=== PATIENT | male | born 1945 | race Caucasian/White ===

== ENCOUNTER 2016-05-25 20:08 | Emergency (ER) | payer MEDICARE, BC ==
[~2016-05-25] VITALS: Ht 175.3 cm; Wt 89.8 kg
[~2016-05-25 20:08] MED LIST: AMLO10TA2 PO; ASPI81TA2 PO; MULT-1168 PO; [UNRECOGNIZED DRUG - REMARK] PO
[2016-05-25] MEDS ORDERED: ASPIRIN 325 MG TABLET ONE (20:24)
[2016-05-25 20:27] LABS: BASOPHILS % (AUTO) 0.2 % (0.0-2.0); EOSINOPHILS # (AUTO) 0.1 /CMM (0.0-0.7); EOSINOPHILS % (AUTO) 1.3 % (0.0-6.0); HEMATOCRIT 47 % (39-51); LYMPHOCYTES # (AUTO) 1.5 /CMM (0.8-4.8); LYMPHOCYTES % (AUTO) 16.7 % (20.0-44.0); MEAN CORPUSCULAR HEMOGLOBIN 33 PG (26.0-33.0); MEAN CORPUSCULAR HGB CONC 34 g/dl (31.0-36.0); MEAN CORPUSCULAR VOLUME 97 fL (80-96); MONOCYTES # (AUTO) 0.6 /CMM (0.1-1.30); MONOCYTES % (AUTO) 6.5 % (2.0-12.0); NEUTROPHILS # (AUTO) 6.8 /CMM (1.8-8.9); NEUTROPHILS % (AUTO) 75.3 % (43.0-81.0); PLATELET COUNT (AUTO) 251 /CMM (150-450); RDW COEFFICIENT OF VARIATION 12.4 (11.5-15.0); RED BLOOD CELL COUNT(AUTO) 4.86 MIL/uL (4.5-6.0)
--- NOTE | 2016-05-25 20:29 | NUR ---
PT A/OX4 BREATHING EFFORTLESSLY ON ROOM AIR, PT C/O MIDSTERNAL CP X 1 HOUR, PT ON THE MONITOR, IV PLACED, LABS DRAWN, EKG DONE, MD AT BEDSIDE, PT FAMILY AT BEDSIDE WILL CONTINUE TO MONITOR.
[2016-05-25] MEDS ORDERED: ASPIRIN 325 MG TABLET PO ONE (20:30)
[2016-05-25 20:37] LABS: CALCIUM, SERUM 9.1 mg/dL (8.5-10.1); CARBON DIOXIDE 30 mmol/L (21-32); CHLORIDE 102 mmol/L (98-107); CREATININE 1.1 mg/dL (0.6-1.3); GFR 66 mL/min (>60); GLUCOSE 202 mg/dL (74-106); POTASSIUM 3.8 mmol/L (3.5-5.1); SODIUM SERUM 139 mmol/L (136-145); UREA NITROGEN, BLOOD 20 mg/dL (7-18)
[2016-05-25 20:41] LABS: INR 1.1 (0.87-1.13); PROTHROMBIN TIME 11.5 SECS (9.5-12.7)
[2016-05-25 20:47] LABS: TROPONIN I < 0.017 ng/mL (0.00-0.056)
[2016-05-26 01:13] VITALS: BP 140/83
== END 2016-05-26 01:14 | disposition home or self-care (01) ==
LOC: ER 20:14
DX: R07.89 Other chest pain (principal); I10 Essential (primary) hypertension; F17.200 Nicotine dependence, unspecified, uncomplicated; Z79.82 Long term (current) use of aspirin
CPT/HCPCS: 36415 ×2; 71010; 80048; 84484 ×2; 85025; 85730; 93005; 99285; A4606; Z7610

== ENCOUNTER 2017-06-30 15:58 | Inpatient (IN) | payer MEDICARE, BC ==
[~2017-06-30] VITALS: Ht 172.7 cm; Wt 94.3 kg
[~2017-06-30 15:58] MED LIST changes: -AMLO10TA2 PO; +AMLO10TA6 PO; +ASPI-1169 PO; -ASPI81TA2 PO
--- NOTE | 2017-06-30 16:25 | NUR ---
PT TO ED ROOM 10. ABDOMINAL PAIN X 1 WEEK GOT WORST THIS MORNING, DENIES N/V/D NOR CONSTIPAT. A/A/O. AMBULATORY. SIDE RAILS UP. HOB ELEVATED. CONNECTED TO MONITOR. AWAITING EVALUATION BY ER PROVIDER.
[2017-06-30] MEDS ORDERED: ONDANSETRON HCL/PF 4 MG/2 ML VIAL ONE (16:50)
[2017-06-30] MEDS ORDERED: MAG HYDROX/AL HYDROX/SIMETH 30 ML UDC ONE (16:50)
[2017-06-30 16:51] LABS: BASOPHILS % (AUTO) 0.4 % (0.0-2.0); EOSINOPHILS % (AUTO) 1.6 % (0.0-6.0); HEMATOCRIT 46 % (39-51); HEMOGLOBIN 15.8 g/dL (13.5-17.5); LYMPHOCYTES # (AUTO) 1.4 /CMM (0.8-4.8); MEAN CORPUSCULAR HGB CONC 35 g/dl (31.0-36.0); MEAN CORPUSCULAR VOLUME 95 fL (80-96); MONOCYTES # (AUTO) 0.6 /CMM (0.1-1.30); MONOCYTES % (AUTO) 6.9 % (2.0-12.0); NEUTROPHILS # (AUTO) 6.7 /CMM (1.8-8.9); NEUTROPHILS % (AUTO) 75.1 % (43.0-81.0); PLATELET COUNT (AUTO) 250 /CMM (150-450); RDW COEFFICIENT OF VARIATION 12.6 (11.5-15.0); RED BLOOD CELL COUNT(AUTO) 4.81 MIL/uL (4.5-6.0); WHITE BLOOD COUNT (AUTO) 8.8 K/uL (4.3-11.0)
[2017-06-30] MEDS ORDERED: FAMOTIDINE/PF INJ 20 MG/2 ML VIAL IV ONE ×2 (16:51→17:00)
--- NOTE | 2017-06-30 16:57 | NUR ---
PT IS UNABLE TO PROVIDE URINE SAMPLE AT THIS TIME. WILL TRY AGAIN SOON.
[2017-06-30] MEDS ORDERED: IV NS 0.9% 1,000 ML BAG IV ONE ×2 (17:00→18:00)
[2017-06-30] MEDS ORDERED: ONDANSETRON HCL/PF 4 MG/2 ML VIAL IVP ONE (17:00)
[2017-06-30] MEDS ORDERED: MAG HYDROX/AL HYDROX/SIMETH 30 ML UDC PO ONE (17:00)
[2017-06-30 17:01] LABS: CALCIUM, SERUM 9.1 mg/dL (8.5-10.1); CARBON DIOXIDE 29 mmol/L (21-32); CHLORIDE 102 mmol/L (98-107); CREATININE 1.2 mg/dL (0.6-1.3); GLUCOSE 189 mg/dL (74-106); POTASSIUM 3.6 mmol/L (3.5-5.1); SODIUM SERUM 140 mmol/L (136-145); UREA NITROGEN, BLOOD 27 mg/dL (7-18)
[2017-06-30 17:05] LABS: INR 1.03 (0.85-1.15)
[2017-06-30 17:07] LABS: ALANINE AMINOTRANSFERASE 58 U/L (12-78); ALBUMIN 3.7 g/dL (3.4-5.0); ALKALINE PHOSPHATASE 64 U/L (46-116); ASPARTATE AMINOTRANSFERASE 23 U/L (15-37); BILIRUBIN,DIRECT 0.2 mg/dL (0.0-0.2); BILIRUBIN,TOTAL 0.3 mg/dL (0.2-1.0); LIPASE 1245 U/L (73-393); TOTAL PROTEIN, SERUM 7.2 g/dL (6.4-8.2)
[2017-06-30 17:09] LABS: TROPONIN I < 0.017 ng/mL (0.00-0.056)
[2017-06-30 17:42] LABS: APPEARANCE,URINE Clear (CLEAR); BILIRUBIN,URINE Negative (NEGATIVE); BLOOD, URINE Negative Ery/uL (NEGATIVE); COLOR,URINE Yellow (YELLOW); KETONES,URINE Negative (NEGATIVE); LEUKOCYTE ESTERASE ,URINE Negative (NEGATIVE); NITRITE, URINE Negative (NEGATIVE); PROTEIN,URINE 30 mg/dl (NEGATIVE); UGLUCOSE 250 MG/DL mg/dL (NEGATIVE); UROBILINOGEN,URINE 0.2 EU/dL (0.2)
[2017-06-30 17:54] LABS: BACTERIA,URINE None seen /HPF (None Seen); MUCUS,URINE Few /LPF (None Seen); RBC,URINE 0-2 /HPF (0-2); SQUAMOUS EPITHELIAL CELL,UR None Seen /HPF (None Seen); WBC,URINE 0-2 /HPF (0-3)
[2017-06-30] MEDS ORDERED: MORPHINE SULFATE INJ 2 MG/ML DISP.SYRIN IV ONE (18:00)
[2017-06-30] MEDS ORDERED: MORPHINE SULFATE INJ 4 MG/ML DISP.SYRIN ONE (18:06)
[2017-06-30] MEDS ORDERED: ATOR10TA PO (19:05)
[2017-06-30] MEDS ORDERED: METF-442 PO (19:05)
[2017-06-30] MEDS ORDERED: VALS1TAB4 PO (19:05)
[2017-06-30] MEDS ORDERED: SITA100T PO (19:05)
[2017-06-30] MEDS ORDERED: NEBI5TAB8 PO (19:05)
--- NOTE | 2017-06-30 19:28 | NUR ---
REPORT GIVEN TO [facility]
--- NOTE | 2017-06-30 19:35 | NUR ---
rn notes: received report from laundry marker supervisor, pt brought to the unit via gurney, pt is a/o x4 ambulatory on ra, c/o 8/10 abdominal pain. oriented pt to unit policy and hourly rounding, skin assessment performed, no skin issues noted, vs taken and recorded, safety precautions for fall initiated, call light in reach, awaiting for md orders.
--- NOTE | 2017-06-30 19:36 | NUR ---
RN NOTES: CLARIFIED WITH COVERER DWIGHT IF PT IS MEDSURG PT, BECAUSE ON SUMMARY REPORT NOTES ADMIT TO TELE PER LESLY EASON, ACCORDING TO COVERER, PT WILL BE ADMITTED TO [facility]
[2017-06-30 20:00] VITALS: BP 165/96
--- NOTE | 2017-06-30 20:20 | NUR ---
transfer for tania: transfer pt by bed via acls protocol, all belonging sent with pt upon transfer. vs table, patient stated his pain improved, and dilaudid helped him to feel better. endorse to juju tate to do admission and for continuity of care.
[2017-06-30] MEDS ORDERED: ACETAMINOPHEN 325 MG TABLET PO PRN (20:30)
[2017-06-30] MEDS ORDERED: MAGNESIUM HYDROXIDE 30 ML UDC PO PRN (20:30)
[2017-06-30] MEDS ORDERED: HYDROCODONE/APAP 5/325MG 1 EACH TABLET PO PRN (20:30)
[2017-06-30] MEDS ORDERED: ONDANSETRON HCL/PF 4 MG/2 ML VIAL IVP PRN (20:30)
[2017-06-30] MEDS ORDERED: HYDROMORPHONE 1 MG/1 ML DISP.SYRIN IV PRN (20:30)
[2017-06-30] MEDS ORDERED: DEXTROSE 50%-WATER 50 ML DISP.SYRIN IV PRN (20:30)
[2017-06-30] MEDS ORDERED: INSULIN REGULAR, HUMAN 100 UNIT/ML 3 ML VIAL SQ PRN (20:30)
[2017-06-30] MEDS ORDERED: Z GUARD REMEDY 2 OZ OINT TP PRN (20:30)
[2017-06-30] MEDS ORDERED: ZOLPIDEM TARTRATE 5 MG TABLET PO PRN (20:30)
--- NOTE | 2017-06-30 20:40 | NUR ---
rn notes: contacted [facility] registered nurse practitioner regarding order for dilaudid, as dilaudid 1mg is out of stock, there's only 2mg dilaudid available, per mingle operator changed the order. also clarified with mingle operator regarding admit to order as admity to order is telemetry, dx acute alcoholic pancreatitis, per registered nurse practitioner epic mingle operator pt will be admitted for telemetry. bebeto peralta made aware, pt will be transferred to telemetry [facility]
[2017-06-30] MEDS ORDERED: HYDROMORPHONE INJ 2 MG/ML DISP.SYRIN ONE (20:52)
[2017-06-30] MEDS: HYDROMORPHONE INJ 2 MG/ML DISP.SYRIN IV PRN (21:01)
--- NOTE | 2017-06-30 21:01 | NUR ---
prn dilaudid: pt c/o 10/12-11/12 abdominal pain requesting for pain medication, pt in so much pain and already upset, dilaudid 1mg ordered by is out of stock, so we need to get an order to changed it to 2mg ivp but same dose/order dilaudid 1mg ivp q4hrs prn for severe pain. prn dilaudid 1mg ivp administered to the pt at this time. will continue monitoring pt
--- NOTE | 2017-06-30 21:30 | NUR ---
RN OPENING NOTES RECEIVED REPORT FROM ALPHONSE ON MS 2. PT ARRIVED ON TO THE UNIT AT 2130. PT IS AWAKE AND ALERT. NO COMPLAINTS OF SOB, DISTRESS OR PAIN AT THIS TIME. PT WAS GIVEN PRN DILAUDID PRIOR TO TRANSFER. PT TELE MONITORED AT NORMAL SINUS RHYTHM WITH BBB AND PEAKED P WAVES AT A RATE OF 75. PT HAS A RIGHT AC IV #20, INTACT AND PATENT. ALL PT BELONGINGS ARE ACCOUNTED FOR AND DOCUMENTED. PT ORIENTED TO THE USE OF THE CALL LIGHT. SAFETY PRECAUTIONS IN PLACE, BED IN LOWEST LOCKED POSITION, X2 SIDE RAILS UP. CALL LIGHT WITHIN REACH. WILL CARRY OUT ALL ORDERS PER MD. WILL CONTINUE TO MONITOR.
[2017-06-30] MEDS: IV NS 0.9% 1,000 ML IV PRN (21:39)
[2017-06-30 21:42] VITALS: BP 154/90
[2017-06-30] MEDS: BLOOD SUGAR DIAGNOSTIC 1 EACH STRIP IN SCH (21:53)
[2017-06-30] MEDS: ATORVASTATIN 10 MG TABLET PO SCH (21:53)
--- NOTE | 2017-06-30 22:00 | NUR ---
RN NOTES PT BLOOD SUGAR LEVEL 147. WILL HOLD INSULIN DUE TO PT NPO.
[2017-07-01] VITALS: BP 154/88
[2017-07-01] MEDS: HYDROMORPHONE INJ 2 MG/ML DISP.SYRIN IV PRN (03:08)
--- NOTE | 2017-07-01 03:08 | NUR ---
RN NOTES PT REQUESTED MEDICATION FOR ABDOMINAL PAIN (10/12). WILL ADMINISTER PRN DILAUDID 1MG IV, AND CONTINUE TO MONITOR.
[2017-07-01 04:21] VITALS: BP 124/81
--- NOTE | 2017-07-01 06:37 | NUR ---
RN CLOSING NOTES PT RESTING IN BED. NO COMPLAINTS OF PAIN AT THIS TIME. PAIN MANAGED DURING SHIFT. PT TELE MONITORED AT NORMAL SINUS RHYTHM WITH BBB AND PEAKED P WAVES AT A RATE OF 75. PT HAS A RIGHT AC IV #20 INTACT AND RUNNING NS @100ML/HR. ALL PT NEEDS MET. PT HAS BEEN NPO SINCE ADMISSION. HELD INSULIN DUE TO NPO STATUS. SAFETY PRECAUTIONS IN PLACE, BED IN LOWEST LOCKED POSITION, X2 SIDE RAILS UP. CALL LIGHT WITHIN REACH. WILL ENDORSE TO DAY SHIFT NURSE FOR CONTINUITY OF CARE.
--- NOTE | 2017-07-01 07:45 | NUR ---
MSRN OPENING NOTES. PT RECEIVED A&0X3, AWAKE AND RETURNING TO BED FROM REST ROOM. PT NPO R/T TO DIAG. PT TELE SR 75 WITH BBB. PT TOLERATING ROOM AIR WITHOUT RESP DISTRESS AND REPORTS PAIN AT 3/10 AT THIS TIME. PT WITH IVC AT R AC G#18 INTACT AND OPERATIONAL WITH IVF PER RX. BED IN LOWEST LOCKED POSITION WITH HANDRAILSX2 AND CALL ODUGHERTY WITHIN REACH. PT BRIEFED ON TODAY'S POC AND IS WITHOUT CONCERN OR COMPLAINT AT THIS TIME.
[2017-07-01 07:50] LABS: BASOPHILS % (AUTO) 0.3 % (0.0-2.0); EOSINOPHILS % (AUTO) 0.9 % (0.0-6.0); HEMATOCRIT 46 % (39-51); HEMOGLOBIN 15.4 g/dL (13.5-17.5); LYMPHOCYTES % (AUTO) 13.2 % (20.0-44.0); MEAN CORPUSCULAR HGB CONC 34 g/dl (31.0-36.0); MEAN CORPUSCULAR VOLUME 97 fL (80-96); MONOCYTES # (AUTO) 0.5 /CMM (0.1-1.30); MONOCYTES % (AUTO) 6.7 % (2.0-12.0); NEUTROPHILS # (AUTO) 5.7 /CMM (1.8-8.9); NEUTROPHILS % (AUTO) 78.9 % (43.0-81.0); PLATELET COUNT (AUTO) 241 /CMM (150-450); RDW COEFFICIENT OF VARIATION 13.6 (11.5-15.0); RED BLOOD CELL COUNT(AUTO) 4.76 MIL/uL (4.5-6.0); WHITE BLOOD COUNT (AUTO) 7.2 K/uL (4.3-11.0)
[2017-07-01] MEDS: BLOOD SUGAR DIAGNOSTIC 1 EACH STRIP IN SCH ×4 (07:58→21:10)
[2017-07-01 08:00] VITALS: BP 137/86
[2017-07-01 08:09] LABS: CALCIUM, SERUM 8.2 mg/dL (8.5-10.1); CREATININE 0.9 mg/dL (0.6-1.3); MAGNESIUM 1.6 mg/dL (1.8-2.4); PHOSPHORUS 2.8 mg/dL (2.5-4.9); POTASSIUM 3.8 mmol/L (3.5-5.1)
[2017-07-01] MEDS ORDERED: ASPIRIN 81 MG TAB.CHEW PO SCH (09:00)
[2017-07-01] MEDS ORDERED: AMLODIPINE BESYLATE 10 MG TABLET PO SCH (09:00)
[2017-07-01] MEDS ORDERED: FENTANYL PF 100MCG/2ML AMPUL IV PRN ×2 (10:00→16:30)
[2017-07-01] MEDS: IV NS 0.9% 1,000 ML IV PRN (10:01)
[2017-07-01] MEDS ORDERED: ENOXAPARIN SODIUM 40 MG/0.4 ML DISP.SYRIN SQ SCH (11:42)
--- NOTE | 2017-07-01 12:00 | NUR ---
MSRN NOTES. PT REPORTS INCREASED PAIN AFTER CLEAR LIQ FOOD TRIAL. JOB SPOTTER AWARE. PT RETURNED TO NPO.
[2017-07-01] MEDS: Magnesium 1GM/D5W 100ML PREMIX 100 ML IV SCH ×2 (12:41→14:11)
[2017-07-01] MEDS ORDERED: HYDROMORPHONE 1 MG/1 ML DISP.SYRIN IV PRN (15:00)
[2017-07-01 16:00] VITALS: BP 141/84
--- NOTE | 2017-07-01 16:12 | NUR ---
INSTALLMENT LOAN COLLECTOR. BAKERY DELIVERER CC REQUESTING 50MCG IV Q4HR PRN, ORDERS PLACED.
--- NOTE | 2017-07-01 18:00 | NUR ---
MSRN NOTES. PT ANNOUNCED HE WANTS TO LEAVE AMA SUPERVISOR ADVICE HAD NOT DELIVERED CT RESULTS AND WAS EXPERIENCING PAIN. SUPERVISOR ADVICE CONTACTED, ANALGESIA CHANGED AND RESULTS RE-STATED TO PT. PT HAPPY TO STAY AT THIS TIME. NIGHT NURSE TO ADMIN ANALGESIA WHEN AVAILABLE.
[2017-07-01] MEDS ORDERED: KETOROLAC TROMETHAMINE INJ 30 MG/ML VIAL IM PRN (19:00)
[2017-07-01] MEDS ORDERED: PANTOPRAZOLE 40 MG VIAL IV SCH (19:00)
--- NOTE | 2017-07-01 19:25 | NUR ---
MSRN CLOSING NOTES. PT REMAINS A&0X3, AWAKE AND RESTING. PT NPO R/T TO DIAG. PT TOLERATING ROOM AIR WITHOUT RESP DISTRESS AND REPORTS PAIN AT 7/10 AT THIS TIME. NIGHT NURSE TO ADMIN NEW RX ANALGESIA. PT WITH IVC AT R AC G#18 INTACT AND OPERATIONAL WITH IVF PER RX. BED IN LOWEST LOCKED POSITION WITH HANDRAILSX2 AND CALL DOUGHERTY WITHIN REACH. ALL DAY NURSE DUTIES ATTENDED TO AND PT IS WITHOUT CONCERN OR COMPLAINT AT THIS TIME. ENDORSED TO NIGHT NURSE AT BEDSIDE FOR AMRIT.
--- NOTE | 2017-07-01 19:30 | NUR ---
MS RN NOTES. PT RECEIVED A&0X3, AWAKE AND RETURNING TO BED FROM REST ROOM. PT NPO R/T TO DIAG. PT TOLERATING ROOM AIR WITHOUT RESP DISTRESS AND REPORTS PAIN AT 6/10 AT THIS TIME. WILL ADMINISTER PAIN MEDICATION ORDERED. PT WITH IVC AT R AC G#18 INTACT AND OPERATIONAL WITH IVF PER RX. BED IN LOWEST LOCKED POSITION WITH HANDRAILSX2 AND CALL DOUGHERTY WITHIN REACH. WILL CONTINUE TO MONITOR.
[2017-07-01 20:00] VITALS: BP 143/87
[2017-07-01] MEDS ORDERED: CIPROFLOXACIN IV RTU 200 ML IV ONE (20:38)
[2017-07-01] MEDS ORDERED: CIPROFLOXACIN IV RTU 400 MG in PREMIX 1 EA IV SCH (21:00)
[2017-07-01] MEDS: ATORVASTATIN 10 MG TABLET PO SCH (21:10)
[2017-07-01 22:00] VITALS: BP 143/87
--- NOTE | 2017-07-02 06:50 | NUR ---
MS RN NOTE PATIENT SIGNED OUT AMA. IV REMOVED. ID BAND REMOVED. MET HIM DOWNSTAIRS. TRIED CONVINCING HIM TO STAY AND BE SEEN BY MD WITH NO SUCCESS. AMA FORM PLACED IN CHART.
[2017-07-02] MEDS: BLOOD SUGAR DIAGNOSTIC 1 EACH STRIP IN SCH (06:58)
== END 2017-07-02 06:45 | disposition left against medical advice (07) | DRG 439 ==
LOC: ER 16:00 → MEDSG2 18:44 → TELE 21:29 → MED 07-01 08:20
PROVIDERS: ADMIT Nurse Practitioner Acute Care; ATTEND Nurse Practitioner Acute Care
DX: K85.20 Alcohol induced acute pancreatitis without necrosis or infection (principal); J98.11 Atelectasis; E11.9 Type 2 diabetes mellitus without complications; I10 Essential (primary) hypertension; K29.70 Gastritis, unspecified, without bleeding; R79.89 Other specified abnormal findings of blood chemistry; I25.2 Old myocardial infarction
CPT/HCPCS: 36415; 71046; 80048-TC; 80061-TC; 80076-TC; 81000-TC; 82962-TC; 83690-TC; 83735-TC; 84100-TC; 84484-TC; 85025-TC; 85730-TC; 87081-TC; A4216; A4606; C9113; J0744; J1170; J1650; J1815; J1885; J2270; J2405; J3010; J3475; J3490; J7030; J7040; Z7610

== ENCOUNTER 2020-12-08 05:30 | Emergency (ER) | payer MEDICARE, BC ==
[~2020-12-08] VITALS: Ht 172.7 cm; Wt 87.1 kg
[~2020-12-08 05:30] MED LIST changes: +AMLO-213 PO; -AMLO10TA6 PO; +ATOR10TA PO; +METF-442 PO; -MULT-1168 PO; +NEBI5TAB8 PO; +SITA100T PO; +VALS1TAB4 PO; -[UNRECOGNIZED DRUG - REMARK] PO
[2020-12-08 05:33] VITALS: BP 137/81
[2020-12-08] MEDS ORDERED: FAMOTIDINE (20 MG) 20 MG TABLET ONE (06:24)
[2020-12-08] MEDS ORDERED: diphenhydrAMINE HCL 50 MG/ML VIAL ONE (06:24)
[2020-12-08] MEDS ORDERED: diphenhydrAMINE HCL 50 MG/ML VIAL IM ONE (06:30)
[2020-12-08] MEDS ORDERED: FAMOTIDINE (20 MG) 20 MG TABLET PO ONE (06:30)
--- NOTE | 2020-12-08 07:32 | NUR ---
Patient discharged to home in stable condition. Written and verbal after care instructions given. Patient verbalizes understanding of instruction.
== END 2020-12-08 07:38 | disposition home or self-care (01) ==
LOC: ER 05:34
DX: L50.8 Other urticaria (principal); I10 Essential (primary) hypertension; F17.200 Nicotine dependence, unspecified, uncomplicated; Z95.5 Presence of coronary angioplasty implant and graft; Z79.82 Long term (current) use of aspirin; Z79.899 Other long term (current) drug therapy
CPT/HCPCS: 96372; 99283; J1200

== ENCOUNTER 2021-11-07 18:29 | Emergency (ER) | payer MEDICARE, BC ==
[~2021-11-07] VITALS: Ht 172.7 cm; Wt 96.6 kg
--- NOTE | 2021-11-07 18:45 | NUR ---
BIBFAMILY C/O HEADACHE X 2 HOURS, B/P NOTED TO BE ELEVATED. AMBULATORY, PLACED ON BED, AAOX4, ATTACHED TO MONITOR BP- 188/111
--- NOTE | 2021-11-07 18:56 | NUR ---
AT BED SIDE
[2021-11-07] MEDS ORDERED: ACETAMINOPHEN 325 MG TABLET PO ONE (19:30)
[2021-11-07] MEDS ORDERED: ACETAMINOPHEN 325 MG TABLET ONE (19:30)
[2021-11-07 20:25] VITALS: BP 164/92
--- NOTE | 2021-11-07 20:25 | NUR ---
Patient discharged to home in stable condition. Written and verbal after care instructions given. Patient verbalizes understanding of instruction.
== END 2021-11-07 20:20 | disposition home or self-care (01) ==
LOC: ER 18:31
DX: I10 Essential (primary) hypertension (principal); F17.210 Nicotine dependence, cigarettes, uncomplicated; Z98.890 Other specified postprocedural states; Z79.899 Other long term (current) drug therapy; Z79.82 Long term (current) use of aspirin

== ENCOUNTER 2022-02-27 13:00 | Emergency (ER) | payer MEDICARE, BC ==
[~2022-02-27] VITALS: Ht 172.7 cm; Wt 90.7 kg
--- NOTE | 2022-02-27 13:12 | NUR ---
DR LAMB AT BEDSIDE
--- NOTE | 2022-02-27 13:18 | NUR ---
URINE SAMPLE COLLECTED AND SENT TO LAB
[2022-02-27] MEDS ORDERED: ONDANSETRON HCL/PF - ER 4 MG/2 ML VIAL IV ONE (13:30)
[2022-02-27] MEDS ORDERED: MORPHINE SULFATE INJ 2 MG/ML DISP.SYRIN IV ONE (13:30)
--- NOTE | 2022-02-27 13:36 | NUR ---
established iv line right ac 20g
[2022-02-27] MEDS ORDERED: MORPHINE SULFATE INJ 4 MG/ML DISP.SYRIN ONE (13:41)
[2022-02-27] MEDS ORDERED: ONDANSETRON HCL/PF 4 MG/2 ML VIAL ONE (13:41)
[2022-02-27 13:45] LABS: BASOPHILS % (AUTO) 0.1 % (0.0-2.0); EOSINOPHILS % (AUTO) 1.2 % (0.0-6.0); HEMATOCRIT 48 % (39-51); HEMOGLOBIN 15.7 g/dL (13.5-17.5); LYMPHOCYTES # (AUTO) 0.8 K/uL (0.8-4.8); LYMPHOCYTES % (AUTO) 8.8 % (20.0-44.0); MEAN CORPUSCULAR HGB CONC 33 g/dl (31.0-36.0); MEAN CORPUSCULAR VOLUME 98 fL (80-96); MONOCYTES # (AUTO) 0.6 K/uL (0.1-1.30); MONOCYTES % (AUTO) 6.8 % (2.0-12.0); NEUTROPHILS # (AUTO) 7.2 K/uL (1.8-8.9); NEUTROPHILS % (AUTO) 83.1 % (43.0-81.0); PLATELET COUNT (AUTO) 220 K/uL (150-450); RED BLOOD CELL COUNT(AUTO) 4.91 MIL/uL (4.5-6.0); WHITE BLOOD COUNT (AUTO) 8.7 K/uL (4.3-11.0)
[2022-02-27 13:51] LABS: CALCIUM, SERUM 9.1 mg/dL (8.5-10.1); CARBON DIOXIDE 30 mmol/L (21-32); CHLORIDE 98 mmol/L (98-107); CREATININE 1.2 mg/dL (0.6-1.3); GLUCOSE 159 mg/dL (74-106); POTASSIUM 4.3 mmol/L (3.5-5.1); SODIUM SERUM 135 mmol/L (136-145); UREA NITROGEN, BLOOD 21 mg/dL (7-18)
[2022-02-27 13:57] LABS: ALANINE AMINOTRANSFERASE 198 U/L (12-78); ALKALINE PHOSPHATASE 149 U/L (46-116); ASPARTATE AMINOTRANSFERASE 62 U/L (15-37); BILIRUBIN,DIRECT 0.5 mg/dL (0.0-0.2); BILIRUBIN,TOTAL 1.2 mg/dL (0.2-1.0); LIPASE 657 U/L (73-393); TOTAL PROTEIN, SERUM 7.8 g/dL (6.4-8.2)
[2022-02-27 14:26] LABS: BILIRUBIN,URINE 1+ (NEGATIVE); COLOR,URINE YELLOW (YELLOW); LEUKOCYTE ESTERASE ,URINE NEGATIVE (NEGATIVE); NITRITE, URINE NEGATIVE (NEGATIVE); PH,URINE 5.5 (5.0-8.0); PROTEIN,URINE 2+ mg/dl (NEGATIVE); UGLUCOSE NEGATIVE (NEGATIVE)
[2022-02-27 16:03] LABS: BACTERIA,URINE None seen /HPF (None Seen); MUCUS,URINE Few /LPF (None Seen); RBC,URINE 0-2 /HPF (0-2); SQUAMOUS EPITHELIAL CELL,UR 0-2 /HPF (None Seen); WBC,URINE 0-2 /HPF (0-3)
--- NOTE | 2022-02-27 18:16 | NUR ---
Patient discharged to home in stable condition. Written and verbal after care instructions given. Patient verbalizes understanding of instruction.
--- NOTE | 2022-02-27 18:16 | NUR ---
IV removed. Catheter intact and site benign. Pressure and 4x4 applied to site. No bleeding noted.
[2022-02-27 18:17] VITALS: BP 129/88
== END 2022-02-27 18:18 | disposition home or self-care (01) ==
LOC: ER 13:08
DX: R10.13 Epigastric pain (principal); R10.12 Left upper quadrant pain; I10 Essential (primary) hypertension; E11.9 Type 2 diabetes mellitus without complications; R74.8 Abnormal levels of other serum enzymes; K40.20 Bilateral inguinal hernia, without obstruction or gangrene, not specified as recurrent; I45.10 Unspecified right bundle-branch block; F17.290 Nicotine dependence, other tobacco product, uncomplicated; Z95.818 Presence of other cardiac implants and grafts; Z79.82 Long term (current) use of aspirin; Z79.84 Long term (current) use of oral hypoglycemic drugs
CPT/HCPCS: 99285; 74176; 96374; 71045; 96375; 93005; 85025; 80048; 83690; 80076; 81001; 36415; 84484; J2270; J2405 ×2

== ENCOUNTER 2024-03-14 08:50 | Emergency (ER) | payer MEDICARE, BC ==
[~2024-03-14] VITALS: Ht 172.7 cm; Wt 81.6 kg
[2024-03-14 09:01] VITALS: BP 112/67; TEMP 98
[2024-03-14] MEDS ORDERED: oxyCODONE/APAP (5/325 MG) 1 UDTAB TABLET PO ONE (09:30)
[2024-03-14] MEDS ORDERED: LIDOCAINE 5% (PATCH) 1 EA PATCH TP ONE (09:32)
[2024-03-14] MEDS ORDERED: ACETAMINOPHEN W/ CODEINE#3 1 EA TABLET ONE (09:33)
[2024-03-14] MEDS: LIDOCAINE 5% (PATCH) 1 EA PATCH TP ONE (09:36)
[2024-03-14] MEDS: ACETAMINOPHEN W/ CODEINE#3 1 EA TABLET PO ONE (09:36)
[2024-03-14 10:28] LABS: BASOPHILS % (AUTO) 0.3 % (0.0-2.0); EOSINOPHILS # (AUTO) 0.1 K/uL (0.0-0.7); EOSINOPHILS % (AUTO) 1.9 % (0.0-6.0); HEMATOCRIT 46 % (39-51); HEMOGLOBIN 15.2 g/dL (13.5-17.5); LYMPHOCYTES # (AUTO) 0.9 K/uL (0.8-4.8); LYMPHOCYTES % (AUTO) 11.7 % (20.0-44.0); MEAN CORPUSCULAR HEMOGLOBIN 33 PG (26.0-33.0); MEAN CORPUSCULAR HGB CONC 33 g/dl (31.0-36.0); MEAN CORPUSCULAR VOLUME 101 fL (80-96); MONOCYTES # (AUTO) 0.7 K/uL (0.1-1.30); MONOCYTES % (AUTO) 9.3 % (2.0-12.0); NEUTROPHILS % (AUTO) 76.8 % (43.0-81.0); PLATELET COUNT (AUTO) 221 K/uL (150-450); RED BLOOD CELL COUNT(AUTO) 4.57 MIL/uL (4.5-6.0); RED CELL DISTRIBUTION WIDTH 13.8 % (11.5-15.0); WHITE BLOOD COUNT (AUTO) 7.9 K/uL (4.3-11.0)
[2024-03-14 10:43] LABS: CALCIUM, SERUM 9.2 mg/dL (8.5-10.1); CARBON DIOXIDE 29 mmol/L (21-32); CHLORIDE 104 mmol/L (98-107); CREATININE 1.3 mg/dL (0.6-1.3); GLUCOSE 180 mg/dL (74-106); POTASSIUM 4.4 mmol/L (3.5-5.1); SODIUM SERUM 138 mmol/L (136-145); UREA NITROGEN, BLOOD 28 mg/dL (7-18)
[2024-03-14] MEDS ORDERED: oxyCODONE/APAP (5/325 MG) 1 UDTAB TABLET ONE (11:23)
[2024-03-14] MEDS: oxyCODONE/APAP (5/325 MG) 1 UDTAB TABLET PO ONE (11:25)
[2024-03-14] MEDS ORDERED: OXYC-128 PO (11:36)
[2024-03-14] MEDS ORDERED: LIDO30AD10 TP (11:36)
[2024-03-14 11:43] VITALS: O2SAT 98
== END 2024-03-14 11:48 | disposition admitted as inpatient to this hospital (09) ==
LOC: ER 09:04
DX: M25.512 Pain in left shoulder (principal); E11.9 Type 2 diabetes mellitus without complications; F17.290 Nicotine dependence, other tobacco product, uncomplicated; I10 Essential (primary) hypertension; Z79.82 Long term (current) use of aspirin; Z79.84 Long term (current) use of oral hypoglycemic drugs; Z79.899 Other long term (current) drug therapy; Z95.5 Presence of coronary angioplasty implant and graft
CPT/HCPCS: 36415; 73030-TC; 80048-TC; 84484-TC; 85025-TC

== ENCOUNTER 2024-11-25 13:11 | Inpatient (IN) | payer MEDICARE, BC ==
[2024-11-25] VITALS (13 sets, daily range): BP systolic 101–134; BP diastolic 61–77; TEMP 97.8; O2SAT 98–100
[~2024-11-25] VITALS: Ht 172.7 cm; Wt 75.7 kg
[~2024-11-25 13:11] MED LIST changes: +FLUC200P18 IV; +LIDO30AD10 TP; +OXYC-128 PO
[2024-11-25] MEDS: IV NS 0.9% 500 ML BAG IV ONE (13:39)
[2024-11-25] MEDS: CEFEPIME 1 GM in IV D5W 50 ML IV ONE (13:56)
[2024-11-25 13:58] LABS: PLATELET COUNT (AUTO) 255 K/uL (150-450); RED BLOOD CELL COUNT(AUTO) 3.07 MIL/uL (4.5-6.0); RED CELL DISTRIBUTION WIDTH 17.2 % (11.5-15.0); WHITE BLOOD COUNT (AUTO) 7.5 K/uL (4.3-11.0)
[2024-11-25 14:09] LABS: APPEARANCE,URINE CLOUDY (CLEAR); BLOOD, URINE NEGATIVE Ery/uL (NEGATIVE); LEUKOCYTE ESTERASE ,URINE NEGATIVE (NEGATIVE); NITRITE, URINE NEGATIVE (NEGATIVE); UGLUCOSE NEGATIVE (NEGATIVE)
[2024-11-25 14:14] LABS: ADD URINE CULTURE YES; SQUAMOUS EPITHELIAL CELL,UR None Seen /HPF (None Seen); URINE AMORPHOUS PHOSPHATES Few /HPF (None Seen)
[2024-11-25 14:14] LABS: INR 1.16 (0.91-1.10)
[2024-11-25 14:17] LABS: CALCIUM, SERUM 8.2 mg/dL (8.5-10.1); CREATININE 0.7 mg/dL (0.6-1.3); SODIUM SERUM 143 mmol/L (136-145)
[2024-11-25 14:24] LABS: LACTIC ACID 1.5 mmol/L (0.4-2.0)
[2024-11-25] MEDS ORDERED: L. A1TAB10 GT (14:24)
[2024-11-25] MEDS ORDERED: HYDR-4303 GT (14:24)
[2024-11-25] MEDS ORDERED: OMEP20CA15 GT (14:24)
[2024-11-25] MEDS ORDERED: INSU100V39 SQ (14:24)
[2024-11-25] MEDS ORDERED: ACET200V4 IH (14:24)
[2024-11-25] MEDS ORDERED: SEMA0.25 SQ (14:24)
[2024-11-25] MEDS ORDERED: POVI1MED TP (14:24)
[2024-11-25] MEDS ORDERED: ENOX40DI9 SQ (14:24)
[2024-11-25] MEDS ORDERED: ZINC220C6 GT (14:24)
[2024-11-25] MEDS ORDERED: MULT-213 GT (14:24)
[2024-11-25] MEDS ORDERED: ALBU2.5V38 IH (14:24)
[2024-11-25] MEDS ORDERED: COLL30OI TP (14:24)
[2024-11-25] MEDS ORDERED: SACU1TAB7 GT (14:24)
[2024-11-25] MEDS ORDERED: VALP250S22 GT (14:24)
[2024-11-25] MEDS ORDERED: NUT.237L30 GT (14:24)
[2024-11-25] MEDS ORDERED: INSU100I30 SQ (14:24)
[2024-11-25] MEDS ORDERED: BALS60OI TP (14:24)
[2024-11-25] MEDS ORDERED: CLOT15CR5 TP (14:24)
[2024-11-25] MEDS ORDERED: TAMS-12 GT (14:24)
[2024-11-25] MEDS ORDERED: CRAN300T GT (14:24)
[2024-11-25] MEDS ORDERED: ASCO-352 GT (14:24)
[2024-11-25] MEDS ORDERED: ACET325T53 GT (14:24)
[2024-11-25] MEDS ORDERED: DOCU50LI GT (14:24)
[2024-11-25 14:27] LABS: ASPARTATE AMINOTRANSFERASE 44 U/L (15-37); TOTAL PROTEIN, SERUM 5.8 g/dL (6.4-8.2); UREA NITROGEN, BLOOD 23 mg/dL (7-18)
[2024-11-25] MEDS: VANCOMYCIN 1 GM in IV D5W 250 ML IV ONE (14:30)
[2024-11-25] MEDS ORDERED: VANCOMYCIN 1 GM in IV D5W 250 ML IV ONE (14:30)
[2024-11-25] MEDS ORDERED: MORPHINE SULFATE INJ 2 MG/ML DISP.SYRIN ONE (15:25)
[2024-11-25] MEDS: MORPHINE SULFATE INJ 2 MG/ML DISP.SYRIN IV ONE (15:31)
[2024-11-25 16:59] LABS: ABG BASE EXCESS 5.3 mmol/L (-2.0-3.0); ABG OXYGEN SATURATION 96.6 % (94.0-98.0); ABG PCO2 37.1 mmHg (35.0-48.0); ABG PH 7.505 (7.350-7.450); ABG PO2 90.0 mmHg (83.0-108.0); ABG TOTAL HEMOGLOBIN 10.9 G/dL (13.5-17.5); FLOW, BLOOD GAS 40.00 L/min (0.00-30.00); FRACTIONATED INSPIRED OXYGEN 60.0 %; SITE, ABG LEFT RADIAL
[2024-11-25] MEDS ORDERED: DOSING PER PHARMACY-CEFEPIME IVPB XX PRN (17:30)
[2024-11-25] MEDS ORDERED: HYDROCODONE/APAP 5/325MG TABLET GT PRN (17:30)
[2024-11-25] MEDS ORDERED: ACETAMINOPHEN 325 MG TABLET PO PRN (17:30)
[2024-11-25] MEDS ORDERED: ALBUTEROL FS 2.5 MG/3 ML VIAL.NEB IH PRN (17:30)
[2024-11-25] MEDS ORDERED: DOSING PER PHARMACY-VANCOMYCIN IV XX PRN (17:30)
[2024-11-25] MEDS ORDERED: ZOLPIDEM TARTRATE 5 MG TABLET PO PRN (17:30)
[2024-11-25] MEDS ORDERED: ONDANSETRON HCL/PF 4 MG/2 ML VIAL IVP PRN (17:30)
[2024-11-25] MEDS ORDERED: Z GUARD REMEDY 4 OZ OINT TP PRN (17:30)
[2024-11-25] MEDS ORDERED: MAGNESIUM HYDROXIDE 30 ML UDC PO PRN (17:30)
[2024-11-25] MEDS ORDERED: MAG HYDROX/AL HYDROX/SIMETH 30 ML UDC PO PRN (17:30)
[2024-11-25] MEDS ORDERED: Medication Not On Formulary EA (Semaglutide (Ozempic) 0.5 MG) SQ SCH (17:30)
[2024-11-25] MEDS: IV NS 0.9% 1,000 ML IV PRN (20:23)
[2024-11-25] MEDS: VANCOMYCIN 750 MG in IV D5W 250 ML IV ONE (20:37)
[2024-11-25] MEDS: ACETYLCYSTEINE 20% SOLN 800 MG/4 ML VIAL IH SCH (21:19)
[2024-11-25] MEDS: VALPROIC ACID 250 MG/5 ML UDC GT SCH (21:53)
[2024-11-25] MEDS: CEFEPIME 2 GM in IV D5W 100 ML IV SCH (22:10)
[2024-11-26] VITALS (45 sets, daily range): BP systolic 105–163; BP diastolic 58–104; TEMP 97.8–98.6; O2SAT 90–100
[2024-11-26 04:31] LABS: PLATELET COUNT (AUTO) 233 K/uL (150-450); RED BLOOD CELL COUNT(AUTO) 2.87 MIL/uL (4.5-6.0); RED CELL DISTRIBUTION WIDTH 17.9 % (11.5-15.0); WHITE BLOOD COUNT (AUTO) 8.5 K/uL (4.3-11.0)
[2024-11-26 04:41] LABS: ASPARTATE AMINOTRANSFERASE 42.0 U/L (15-37); CALCIUM, SERUM 7.8 mg/dL (8.5-10.1); CREATININE 0.6 mg/dL (0.6-1.3); PHOSPHORUS 2.4 mg/dL (2.5-4.9); SODIUM SERUM 139.0 mmol/L (136-145); TOTAL PROTEIN, SERUM 5.3 g/dL (6.4-8.2); UREA NITROGEN, BLOOD 19.0 mg/dL (7-18)
[2024-11-26 05:48] LABS: ABG BASE EXCESS 3.9 mmol/L (-2.0-3.0); ABG OXYGEN SATURATION 87.6 % (94.0-98.0); ABG PCO2 35.0 mmHg (35.0-48.0); ABG PH 7.506 (7.350-7.450); ABG PO2 53.0 mmHg (83.0-108.0); ABG TOTAL HEMOGLOBIN 10.1 G/dL (13.5-17.5); FLOW, BLOOD GAS 5.00 L/min (0.00-30.00); FRACTIONATED INSPIRED OXYGEN 40.0 %; SITE, ABG LEFT RADIAL
[2024-11-26 06:09] LABS: EOSINOPHILS % (MANUAL) 2 % (0-4); LYMPHOCYTES % (MANUAL) 8 % (16-48); MONOCYTES % (MANUAL) 4 % (0-11.0); NEUTROPHILS % (MANUAL) 86 (42-76); PLATELET ESTIMATE ADEQUATE
[2024-11-26] MEDS ORDERED: SODIUM CHLORIDE IV SCH (07:00)
[2024-11-26] MEDS ORDERED: FLUCONAZOLE IV SCH (07:00)
[2024-11-26] MEDS: FLUCONAZOLE IN NS,PREMIX 200 MG in PREMIX 1 EA IV SCH (08:04)
[2024-11-26] MEDS: ZINC SULFATE 220 MG CAPSULE GT SCH (08:11)
[2024-11-26] MEDS: MULTIVIT W/MINERALS 1 TAB TABLET GT SCH (08:11)
[2024-11-26] MEDS: PANTOPRAZOLE 40 MG TABLET.DR PO SCH (08:11)
[2024-11-26] MEDS: TAMSULOSIN 0.4 MG CAP.SR.24H GT SCH (08:11)
[2024-11-26] MEDS: DOCUSATE SODIUM LIQ 100 MG/10 ML UDC GT SCH (08:11)
[2024-11-26] MEDS: ACIDOPHILUS/BULGARICUS 1 EACH TAB.CHEW GT SCH (08:11)
[2024-11-26] MEDS: ASCORBIC ACID 500 MG TABLET GT SCH (08:11)
[2024-11-26] MEDS: THERAHONEY GEL 1.5 OZ TUBE TP SCH (08:16)
[2024-11-26] MEDS: CLOTRIMAZOLE/BETAMETASONE DIPROPIONATE 15 GM TUBE TP SCH (08:16)
[2024-11-26] MEDS: VANCOMYCIN 1 GM in IV D5W 250ml IV SCH (08:17)
[2024-11-26] MEDS ORDERED: BALSAM PERU TP SCH (09:00)
[2024-11-26] MEDS ORDERED: POVIDONE IODINE TP SCH (09:00)
[2024-11-26] MEDS ORDERED: CASTOR OIL TP SCH (09:00)
[2024-11-26] MEDS: IPRATROPIUM NEB FS 0.5 MG/2.5 ML AMPUL.NEB NEB SCH (10:00)
[2024-11-26] MEDS: ALBUTEROL FS 2.5 MG/3 ML VIAL.NEB IH SCH (10:00)
[2024-11-26] MEDS: IV NS 0.9% 1,000 ML IV PRN (10:15)
[2024-11-26 12:46] LABS: LDL 78 mg/dL (0-99)
[2024-11-26] MEDS: Sodium Phosphate 15 MMOL in IV NS 0.9% 245 ML IV SCH (17:05)
[2024-11-26] MEDS: GLUCERNA 1.2 1,000 ML BOTTLE NG SCH (21:21)
[2024-11-27] VITALS (31 sets, daily range): BP systolic 101–131; BP diastolic 56–102; TEMP 97.7–98.3; O2SAT 92–100
[2024-11-27 07:17] LABS: PLATELET COUNT (AUTO) 205 K/uL (150-450); RED BLOOD CELL COUNT(AUTO) 2.68 MIL/uL (4.5-6.0); RED CELL DISTRIBUTION WIDTH 16.9 % (11.5-15.0); WHITE BLOOD COUNT (AUTO) 8.0 K/uL (4.3-11.0)
[2024-11-27 07:31] LABS: CALCIUM, SERUM 7.5 mg/dL (8.5-10.1); CREATININE 0.5 mg/dL (0.6-1.3); PHOSPHORUS 2.8 mg/dL (2.5-4.9); SODIUM SERUM 140.0 mmol/L (136-145); UREA NITROGEN, BLOOD 14.0 mg/dL (7-18)
[2024-11-27 07:39] LABS: ASPARTATE AMINOTRANSFERASE 42.0 U/L (15-37); TOTAL PROTEIN, SERUM 4.8 g/dL (6.4-8.2)
[2024-11-27] MEDS: PANTOPRAZOLE 40 MG/PACK PACK GT SCH (09:22)
[2024-11-27] MEDS: FLUCONAZOLE IN NS,PREMIX 200 MG in PREMIX 1 EA IV SCH (10:36)
[2024-11-28] VITALS (15 sets, daily range): BP systolic 94–134; BP diastolic 48–77; TEMP 97.9–98.8; O2SAT 95–100
[2024-11-28] MEDS ORDERED: CEFE2FRO IV (09:45)
[2024-11-28 11:11] LABS: PLATELET COUNT (AUTO) 159 K/uL (150-450); RED BLOOD CELL COUNT(AUTO) 3.01 MIL/uL (4.5-6.0); RED CELL DISTRIBUTION WIDTH 18.0 % (11.5-15.0); WHITE BLOOD COUNT (AUTO) 9.0 K/uL (4.3-11.0)
[2024-11-28 11:20] LABS: CALCIUM, SERUM 7.5 mg/dL (8.5-10.1); CREATININE 0.6 mg/dL (0.6-1.3); PHOSPHORUS 2.3 mg/dL (2.5-4.9); SODIUM SERUM 137.0 mmol/L (136-145); UREA NITROGEN, BLOOD 13.0 mg/dL (7-18)
== END 2024-11-28 15:42 | DRG 871 ==
LOC: ER 13:18 → ICU 18:55 → TELE1 11-27 16:49 → TELE-TD 11-27 19:01 → TELE1 11-28 09:37
PROVIDERS: ADMIT Student in an Organized Health Care Education/Training Program; ATTEND Student in an Organized Health Care Education/Training Program
DX: A41.9 Sepsis, unspecified organism (principal); E43 Unspecified severe protein-calorie malnutrition; J15.69 Pneumonia due to other Gram-negative bacteria; J96.01 Acute respiratory failure with hypoxia; J69.0 Pneumonitis due to inhalation of food and vomit; G81.91 Hemiplegia, unspecified affecting right dominant side; J98.11 Atelectasis; I82.611 Acute embolism and thrombosis of superficial veins of right upper extremity; E86.0 Dehydration; K21.9 Gastro-esophageal reflux disease without esophagitis; I25.10 Atherosclerotic heart disease of native coronary artery without angina pectoris; D64.9 Anemia, unspecified; I10 Essential (primary) hypertension; L22 Diaper dermatitis; L89.312 Pressure ulcer of right buttock, stage 2; I25.2 Old myocardial infarction; Z74.01 Bed confinement status; Z79.4 Long term (current) use of insulin; Z79.84 Long term (current) use of oral hypoglycemic drugs; Z86.73 Personal history of transient ischemic attack (TIA), and cerebral infarction without residual deficits; Z95.5 Presence of coronary angioplasty implant and graft; Z86.718 Personal history of other venous thrombosis and embolism; Z95.828 Presence of other vascular implants and grafts; R13.10 Dysphagia, unspecified; E11.9 Type 2 diabetes mellitus without complications; Z20.822 Contact with and (suspected) exposure to COVID-19; R74.01 Elevation of levels of liver transaminase levels; Z68.25 Body mass index [BMI] 25.0-25.9, adult; L89.156 Pressure-induced deep tissue damage of sacral region; S06.890S Other specified intracranial injury without loss of consciousness, sequela; Z93.1 Gastrostomy status; R32 Unspecified urinary incontinence
CPT/HCPCS: 31720; 36415; 36600; 70450-TC; 71045-TC; 74018; 76700-TC; 80048-TC; 80061-TC; 80076-TC; 80202-TC; 81001; 82803-TC; 82962-TC; 83605-TC; 83735-TC; 84100-TC; 84443-TC; 84484-TC; 85025-TC; 85027-TC; 85730-TC; 87040-TC; 87081-TC; 87086-TC; 93307-TC; 93970-TC; 93971-TC; 94799-TC; 99082-TC; A4216; A4223; A6254; A9563; G0378; J0692; J1450; J2270; J3373; J3374; J7030; J7040; J7050; J7060